=== PATIENT | male | born 1970 | race Caucasian/White ===

== ENCOUNTER → 2017-02-17 | Outpatient (CLI) | payer BC ==
--- NOTE | 2017-02-17 14:12 | XR ---
EXAMINATION TYPE: XR knee complete LT DATE OF EXAM: 02/17/2017 2:03 PM COMPARISON: NONE HISTORY: Pain TECHNIQUE: Four views are submitted. FINDINGS: Mild joint space narrowing. No erosive changes. Osseous structures are intact. No acute fracture see n. IMPRESSION: 1. Mild arthropathy.
== END | disposition home or self-care (01) ==
LOC: RADXRMAIN 13:45
PROVIDERS: ATTEND Family Medicine
DX: M12.862 Other specific arthropathies, not elsewhere classified, left knee (principal)

== ENCOUNTER → 2017-03-21 | Outpatient (CLI) | payer BC ==
--- NOTE | 2017-03-21 20:05 | MR ---
EXAMINATION TYPE: MR knee LT wo con DATE OF EXAM: 03/21/2017 COMPARISON: NONE HISTORY: lt knee pain medially. no recent injury. hx played hockey for yrs/goal tender TECHNIQUE: Multiplanar, multisequence imaging of the left knee is performed without IV contrast. FINDINGS: MEDIAL MENISCUS: There is linear oblique signal within the posterior horn medial meniscus. No communi cation with an articular surface is evident. Findings can be compatible with a type I internal tear. Anterior horn medial meniscus is normal. LATERAL MENISCUS: Anterior and posterior horns are intact without tear. CRUCIATE LIGAMENTS: The anterior and posterior cruciate ligaments are intact and unremarkable. COLLATERAL LIGAMENTS: The medial collateral ligament and lateral collateral ligament complex are inta ct and unremarkable. EXTENSOR MECHANISM: The patellar tendon appears intact. The distal quadriceps tendon and may have marie e increased signal adjacent to the anterior and posterior surfaces. Some mild tendinosis may be prese nt. EFFUSION: No significant suprapatellar joint effusion. POPLITEAL CYST: No popliteal/palumbo cyst. TRICOMPARTMENT SPACES: No loss of joint space is evident. CARTILAGE: Articular cartilage appears intact. BONE MARROW SIGNAL: No focal abnormal marrow signal is appreciated. OTHER: No additional significant abnormality is appreciated. IMPRESSION: 1. Oblique signal within the posterior horn medial meniscus without communication with an articular s urface compatible with a type I internal derangement. 2. Suggestion of some mild tendinosis of the distal quadriceps tendon
== END | disposition home or self-care (01) ==
LOC: RADMRIMAIN 18:38
PROVIDERS: ATTEND Orthopaedic Surgery
DX: M25.562 Pain in left knee (principal)

== ENCOUNTER → 2017-07-03 | Outpatient (CLI) | payer BC ==
--- NOTE | 2017-07-03 12:58 | MR ---
EXAMINATION TYPE: MR lumbar spine wo con DATE OF EXAM: 07/03/2017 COMPARISON: NONE HISTORY: Radiculopathy of lumbar region radiating to the left lower extremity with pain for 6 months TECHNIQUE: Multiplanar, multisequence images of the lumbar spine were acquired. L1-L2: There is a small broad-based disc bulge with left paracentral annular tear. No resultant neura l foraminal narrowing or significant spinal canal stenosis are seen. L2-L3: Broad-based disc bulge is seen as flattening of the posterior disc usual convexity and anterio r protrusion. Mild ligamentum flavum hypertrophy and facet arthropathy are also noted. Neural foramen and spinal canal remain patent. L3-L4: Broad-based disc bulge is seen as flattening of the posterior disc usual convexity and anterio r protrusion. Mild ligamentum flavum hypertrophy and facet arthropathy are also noted. Neural foramen and spinal canal remain patent. L4-L5: Broad-based disc bulge is seen as flattening of the posterior disc usual convexity and anterio r protrusion. Mild ligamentum flavum hypertrophy and facet arthropathy are also noted. Neural foramen and spinal canal remain patent L5-S1: Left paracentral small disc herniation with associated annular tear is seen abutting the formi ng S1 nerve root. Small nerve sheath cysts are seen bilaterally. Spinal canal and neural foramen colt in patent. Lumbar segments are intact. No paraspinal masses are identified. Conus medullaris has a normal appe arance terminating at L1-L2. IMPRESSION: 1. Small left paracentral disc herniation abutting the left S1 nerve root. Spinal canal and neural fo ramina remain patent. 2. Mild multilevel degenerative disc disease without resultant spinal canal stenosis.
== END | disposition home or self-care (01) ==
LOC: RADMRIMAIN 11:19
PROVIDERS: ATTEND Psychiatry & Neurology Neurology
DX: M51.17 Intervertebral disc disorders with radiculopathy, lumbosacral region (principal)
CPT/HCPCS: 72148

== ENCOUNTER → 2017-08-07 | Outpatient (CLI) | payer BC ==
--- NOTE | 2017-08-07 11:52 | XR ---
EXAMINATION TYPE: XR knee complete RT DATE OF EXAM: 08/07/2017 COMPARISON: NONE HISTORY: Pain TECHNIQUE: Four views are submitted. FINDINGS: Mild hypertrophic changes and joint space narrowing. No erosive changes. Osseous structures are inta ct. No acute fracture seen. IMPRESSION: 1. No acute fracture or dislocation.
== END ==
LOC: RADXRMAIN 10:33
PROVIDERS: ATTEND Family Medicine
DX: M25.561 Pain in right knee (principal)

== ENCOUNTER → 2017-09-12 | Outpatient (CLI) | payer BC ==
--- NOTE | 2017-09-12 19:07 | PN ---
PROGRESS NOTE A 46-year-old male patient coming in for a followup regarding obstructive sleep apnea. The patient was insistent on upgrading his CPAP machine. I checked his older unit, which is a [employer]ics REMstar pro unit, and this is set at a pressure of 11 cm of water. To my surprise, the patient was not using the CPAP machine at all and there has been no CPAP use for the past 30 days. The patient admitted not using the CPAP machine. As such, I would not justify upgrading the patient's CPAP machine as long as he has not been using his treatment for a while. He has a Quattro full face mask, which is clean and he had appropriate tubing and supplies. It is not clear to me why the patient has not been using the CPAP machine. He cannot come up with a clear explanation; however, he seems to be committed and he wants to go back on using the machine, knowing that he has moderate to severe disease with an AHI of 21. The CPAP pressure is still at 11 cm of water. BP is 124/84, pulse 72, respirations 16, temperature 98.2, saturation 96% on room air. Weight is 192. GENERAL APPEARANCE: Calm, comfortable. Head is atraumatic, normocephalic. NECK: Supple. There is no JVD. There is no goiter or neck mass. LUNGS: Clear to auscultation. HEART: Sounds regular rhythm. Normal S1, S2. No S3, S4. No murmurs. ABDOMEN: Soft, nontender. No organomegaly. EXTREMITIES: No edema. No cyanosis or clubbing. NEUROLOGIC: Alert and oriented x3. There are no focal neurological deficits. PSYCHIATRIC: Negative for anxiety or depression. SKIN: Negative for wounds or ulceration. IMPRESSION: 1. Symptomatic obstructive sleep apnea with an apnea-hypopnea index of 21, suboptimal continuous positive airway pressure use, suboptimal compliance. 2. Acid reflux. 3. Degenerative arthritis. PLAN: 1. The patient will not qualify to have his CPAP machine upgraded. 2. Encouraged to going back to his original CPAP machine use at the same setting. 3. Will continue to follow. He will see him back in a year's time in followup. MMODL / IJN: [id number] /
== END | disposition home or self-care (01) ==
LOC: SLEEP 14:00
PROVIDERS: ATTEND Internal Medicine Critical Care Medicine
DX: G47.33 Obstructive sleep apnea (adult) (pediatric) (principal); K21.9 Gastro-esophageal reflux disease without esophagitis; M19.90 Unspecified osteoarthritis, unspecified site

== ENCOUNTER 2018-06-20 11:04 | Emergency (ER) | payer BC ==
[2018-06-20 11:11] VITALS: BP 137/93; PULSE 67; RESP 18; TEMP 98.2
--- NOTE | 2018-06-20 12:11 | ED ---
Upper Extremity HPI - General Chief Complaint: Extremity Injury, Upper Stated Complaint: Arm Pain, finger numbness Time Seen by Provider: 06/20/18 11:58 Source: patient Mode of arrival: ambulatory Limitations: no limitations - History of Present Illness Initial Comments: This a 47-year-old male past history of hypertension and hyperlipidemia who presents today for chief complaint of left axillary pain. Patient states that about 2-3 days ago he began noticing a deep pain in his left axillary region he said it felt like a muscle ache. He denies any trauma or falls. Patient describes the pain as a deep pain, that was sharp and shooting at time. Pt denies a pattern and states that it started while sitting down one morning. Pt denies that is brought on by ambulation. Pt stated that as the days progressed since onset the pain would radiate down his left arm and he noticed tingling in his first 3 digits. Pt denies any neck pain or injury to the neck. In addition patient denies any numbness, tingling, loss sensation, muscle weakness, coolness , or pallor of extremity, rashes, lesions, or masses. Patient denies any chest pain, SOB, dyspnea upon exertion, back pain, diaphoresis. Pt denies taking medication for the pain. Pt denies cardiac history and denies history of cardiac issues in family prior to age of 52. Remainder of ROS negative. - Related Data Allergies Allergy/AdvReac Type Severity Reaction Status Date / Time No Known Allergies Allergy Verified 06/20/18 11:11 Review of Systems ROS Statement: Those systems with pertinent positive or pertinent negative responses have been documented in the HPI. ROS Other: All systems not noted in ROS Statement are negative. Constitutional: Denies: fever, chills Eyes: Denies: vision change ENT: Denies: ear pain, throat pain Respiratory: Denies: cough, dyspnea, wheezes, hemoptysis, stridor Cardiovascular: Denies: chest pain, palpitations, orthopnea, edema, syncope Endocrine: Denies: fatigue Gastrointestinal: Denies: abdominal pain, nausea, vomiting, diarrhea, constipation Genitourinary: Denies: urgency, dysuria, frequency, hematuria Musculoskeletal: Reports: as per HPI, myalgia. Denies: back pain, joint swelling, arthralgia Skin: Denies: rash, lesions Neurological: Denies: headache, weakness Past Medical History Past Medical History: Hypertension History of Any Multi-Drug Resistant Organisms: None Reported Additional Past Surgical History / Comment(s): vasectomy Past Psychological History: No Psychological Hx Reported Smoking Status: Current every day smoker Past Alcohol Use History: Occasional Past Drug Use History: Marijuana General Exam - General Exam Comments Initial Comments: General: The patient is awake and alert, in no distress, and does not appear acutely ill. Eye: Pupils are equal, round and reactive to light, extra-ocular movements are intact. No nystagmus. There is normal conjunctiva bilaterally. No signs of icterus. Ears, nose, mouth and throat: There are moist mucous membranes and no oral lesions. Cardiovascular: There is a regular rate and rhythm. No murmur, rub or gallop is appreciated. Respiratory: Lungs are clear to auscultation, respirations are non-labored, breath sounds are equal. No wheezes, stridor, rales, or rhonchi. Musculoskeletal: Upon inspection no erythema, rashes, masses, cysts/lesions, no obvious deformities or defects. Full ROM at the shoulder b/l with extension, flexion, rotation, internal and external rotation, pt admits to increased pain down arm with these movements. there is tenderness to palpation to the mid axillary region. UE strength 5/5 equally b/l, no signs of musclar weakness. Sensation intact of the UE equally b/l including the digits of the left hand. Radial pulses equal bilaterally 2+. Capillary refill <2 seconds. No midline or paravertebral tenderness to palpation of the cervical spine, pt is able to range at the c spine with flexion, extension, rotation and lateral flexion without pain or difficulty. +2 DTR of the UE equally b/l. Pt able to make the ok , fingers crossed, thumbs up and stop signs with the hands b/l. Median, ulnar and radial n intact. Neurological: A&O x 3. CN II-XII intact, There are no obvious motor or sensory deficits. Coordination appears grossly intact. Speech is normal. Skin: Skin is warm and dry and no rashes or lesions are noted. Psychiatric: Cooperative, appropriate mood & affect, normal judgment. Limitations: no limitations Course Vital Signs 06/20/18 11:09 Temperature 98.2 F Pulse Rate 67 Respiratory 18 Rate Blood Pressure 137/93 O2 Sat by Pulse 99 Oximetry Medical Decision Making - Medical Decision Making Given pt history of no trauma and the description of pain sounds neuropathic in nature. 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 EKG obtained due to left arm being the affected side, but pt shows no signs of ACS, VS stable pt appear well. EKG WNL. Case discussed with Dr. Mclaughlin who agreed with impressiona and plan. At this time we feel there may be an impingement syndrome causing neuropathic pain. Pt agrees with impression and plan. Pt was given orthopedic f/ u in 1-2 days for further evaluation and treatment. Pt was instructed to use over the counter NSAIDs for pain mgmt as needed and to rest shoulder. Pt d/c in stable condition. - EKG Data -: EKG Interpreted by Me EKG shows normal: sinus rhythm Rate: bradycardia EKG Comments: Ventricular rate 51 beats minute, DE interval 166, QRS duration 94 ms QTC 383 ms , no ST elevations or depressions, no T-wave inversions. Normal EKG with sinus fabiana. Disposition Clinical Impression: Radicular pain in left arm Disposition: HOME SELF-CARE Condition: Good Instructions: Arm Pain (ED) Additional Instructions: Please use medication as discussed. Please follow-up with orthopedic surgery in the next 1-2 days. Please return to emergency room if the symptoms increase or worsen or for any other concerns, as discussed. Is patient prescribed a controlled substance at d/c from ED?: No Referrals: Christina Walker MD [Primary Care Provider] - 1-2 days Chance Soares MD [STAFF PHYSICIAN] - 1-2 days Time of Disposition: 12:13
== END 2018-06-20 12:52 | disposition home or self-care (01) ==
LOC: EC 11:04
DX: M79.602 Pain in left arm (principal); R00.1 Bradycardia, unspecified; R20.2 Paresthesia of skin; F17.200 Nicotine dependence, unspecified, uncomplicated
CPT/HCPCS: 93005; 99283

== ENCOUNTER 2019-12-21 07:42 | Emergency (ER) | payer BC ==
--- NOTE | 2019-12-21 08:32 | ED ---
ENT HPI - General Source: patient Mode of arrival: ambulatory Limitations: no limitations <Acacia Mayorga - Last Filed: 12/21/19 10:34> <Sidra Cohen - Last Filed: 12/22/19 23:45> - General Chief complaint: ENT Stated complaint: ENT Time Seen by Provider: 12/21/19 07:50 - History of Present Illness Initial comments: 49yo male presenting today for cc of painful right anteior lymph nodes and cough x 2-3 days. Patient states the past 2-3 days he has had painful right side of his anterior neck he states he feels like his glands are swollen. He states that this has happened when he was ill in the past but has not for been this painful. Patient denies any headache or neck stiffness. Patient denies any sore throat difficulty swallowing breathing or swelling of the neck. Patient denies any fevers currently or night sweats. Patient admit to dry cough and states two weeks ago he believes he had influenza, had fevers at that time. Patient has not other complaints at this time. He appears well, tolerating oral secretion in no distress on arrival. Afebrile. (Acacia Mayorga) - Related Data Allergies Allergy/AdvReac Type Severity Reaction Status Date / Time varenicline [From Chantix] Allergy Unknown Verified 12/21/19 07:48 Review of Systems ROS Other: All systems not noted in ROS Statement are negative. <Acacia Mayorga - Last Filed: 12/21/19 10:34> ROS Other: All systems not noted in ROS Statement are negative. <Sidra Cohen - Last Filed: 12/22/19 23:45> ROS Statement: Those systems with pertinent positive or pertinent negative responses have been documented in the HPI. Past Medical History Past Medical History: Hyperlipidemia, Hypertension History of Any Multi-Drug Resistant Organisms: None Reported Additional Past Surgical History / Comment(s): vasectomy Past Psychological History: No Psychological Hx Reported Smoking Status: Current every day smoker Past Alcohol Use History: Occasional Past Drug Use History: Marijuana <Acacia Mayorga - Last Filed: 12/21/19 10:34> General Exam Limitations: no limitations <Acacia Mayorga - Last Filed: 12/21/19 10:34> - General Exam Comments Initial Comments: General: The patient is awake and alert, in no distress Eye: +3 mm pupils are equal, round and reactive to light, extra-ocular movements are intact. No nystagmus. There is normal conjunctiva bilaterally. No signs of icterus. No photophobia Ears, nose, mouth and throat: There are moist mucous membranes and no oral lesions. Oropharynx was erythematous there is no tonsillar enlargement exudates or lesions. Uvula midline. Tympanic membranes are not erythematous or is no effusions bulging or retraction. No tenderness to palpation of the mastoid. Rhinorrhea, clear and bilateral nares. No tripoding, no drooling. Neck: The neck is supple, there is right anterior tenderness to palpation and mild anterior lymphadenopathy. No JVD. No nuchal rigidity Cardiovascular: There is a regular rate and rhythm. No murmur, rub or gallop is appreciated. Respiratory: Lungs are clear to auscultation, respirations are non-labored, breath sounds are equal. No wheezes, stridor, rales, or rhonchi. No retractions or abdominal breathing. Gastrointestinal: Soft, non-distended, non-tender abdomen without masses or organomegaly noted. There is no rebound or guarding present. Bowel sounds are unremarkable. Musculoskeletal: Normal ROM, no tenderness. Strength 5/5. Sensation intact. Radial pulses equal bilaterally 2+. Neurological: A&O x 3. CN II-XII intact grossly, There are no obvious motor or sensory deficits. Coordination appears grossly intact. Speech appears normal, no muffling. Skin: Skin is warm and dry and no rashes or lesions are noted. No extremity edema Psychiatric: Cooperative (Acacia Mayorga) Course Vital Signs 12/21/19 12/21/19 07:45 09:05 Temperature 98.1 F 97.6 F Pulse Rate 79 60 Respiratory 16 18 Rate Blood Pressure 145/90 118/89 O2 Sat by Pulse 98 96 Oximetry Medical Decision Making - Lab Data Result diagrams: 12/21/19 08:15 <Acacia Mayorga - Last Filed: 12/21/19 10:34> - Lab Data Result diagrams: 12/21/19 08:15 <Sidra Cohen - Last Filed: 12/22/19 23:45> - Medical Decision Making 49-year-old male presented for tender right anterior lymphadenopathy. Patient recent URI. Patient has slight cough that is persistent. Chest x-ray clear infiltrates lungs clear. Patient appears well and nontoxic. Patient does have some mild erythema of the oropharynx. Uvula midline. Patient has no signs of tripoding or drooling no signs of compressive symptoms or hot potato voice. Patient has palpable enlarged right anterior lymphadenopathy. Patient has no systemic leukocytosis, heterophile negative strep pharyngitis rapid testing negative at this time I feel the lymphadenopathy physical reactive from a URI however this is early disease course isn't only been ongoing for 2-3 days and would need follow-up with primary care provider for further evaluation and diagnosis. Otherwise at this time do not feel that patient has airway compromise and is stable for discharge with primary care follow-up. Return parameters were discussed at length I did discuss the case by attending provider and patient was discharged appearing well (Acacia Mayorga) I was available for consultation in the emergency department. The history and physical exam were done by the midlevel provider. I was consulted for this patients care. I reviewed the case with the midlevel provider and based on their presentation of the patient, I agree with the assessment, medical decision making and plan of care as documented. Chart was dictated using [employer] dictation software. Attempts were made to correct any dictation errors however some typographical errors may persist. (Sidra Cohen) - Lab Data Lab Results 12/21/19 12/21/19 12/21/19 Range/Units 08:15 08:15 08:15 WBC 7.7 (3.8-10.6) k/uL RBC 4.80 (4.30-5.90) m/uL Hgb 15.4 (13.0-17.5) gm/dL Hct 44.5 (39.0-53.0) % MCV 92.8 (80.0-100.0) fL MCH 32.1 (25.0-35.0) pg MCHC 34.6 (31.0-37.0) g/dL RDW 12.6 (11.5-15.5) % Plt Count 297 (150-450) k/uL Neutrophils % 58 % Lymphocytes % 28 % Monocytes % 8 % Eosinophils % 4 % Basophils % 1 % Neutrophils # 4.5 (1.3-7.7) k/uL Lymphocytes # 2.1 (1.0-4.8) k/uL Monocytes # 0.6 (0-1.0) k/uL Eosinophils # 0.3 (0-0.7) k/uL Basophils # 0.0 (0-0.2) k/uL Heterophile Antibody Negative (Negative) Influenza Type A RNA Not Detected (Not Detectd) Influenza Type B (PCR) Not Detected (Not Detectd) Group A Strep Rapid (Negative) 12/21/19 Range/Units 08:15 WBC (3.8-10.6) k/uL RBC (4.30-5.90) m/uL Hgb (13.0-17.5) gm/dL Hct (39.0-53.0) % MCV (80.0-100.0) fL MCH (25.0-35.0) pg MCHC (31.0-37.0) g/dL RDW (11.5-15.5) % Plt Count (150-450) k/uL Neutrophils % % Lymphocytes % % Monocytes % % Eosinophils % % Basophils % % Neutrophils # (1.3-7.7) k/uL Lymphocytes # (1.0-4.8) k/uL Monocytes # (0-1.0) k/uL Eosinophils # (0-0.7) k/uL Basophils # (0-0.2) k/uL Heterophile Antibody (Negative) Influenza Type A RNA (Not Detectd) Influenza Type B (PCR) (Not Detectd) Group A Strep Rapid Negative (Negative) Disposition Is patient prescribed a controlled substance at d/c from ED?: No Time of Disposition: 09:18 <Acacia Mayorga - Last Filed: 12/21/19 10:34> <Sidra Cohen - Last Filed: 12/22/19 23:45> Clinical Impression: Lymphadenopathy Disposition: HOME SELF-CARE Condition: Good Instructions (If sedation given, give patient instructions): Lymphadenopathy (ED) Additional Instructions: Please use medication as discussed. Please follow-up with family doctor in the next 2 days. Please return to emergency room if the symptoms increase or worsen or for any other concerns. Referrals: Rogelio Pinto [Primary Care Provider] - 1-2 days
[2019-12-21 08:37] LABS: Basophils % (A) 1 %; Eosinophils # (A) 0.3 k/uL (0-0.7); Eosinophils % (A) 4 %; HCT 44.5 % (39.0-53.0); HGB 15.4 gm/dL (13.0-17.5); Lymphocytes # (A) 2.1 k/uL (1.0-4.8); Lymphocytes % (A) 28 %; MCH 32.1 pg (25.0-35.0); MCHC 34.6 g/dL (31.0-37.0); MCV 92.8 fL (80.0-100.0); Mean Platelet Volume 8.6; Monocytes # (A) 0.6 k/uL (0-1.0); Monocytes % (A) 8 %; Neutrophils # (A) 4.5 k/uL (1.3-7.7); Neutrophils % (A) 58 %; Platelet Count 297 k/uL (150-450); RDW 12.6 % (11.5-15.5); WBC 7.7 k/uL (3.8-10.6)
--- NOTE | 2019-12-21 08:57 | XR ---
EXAMINATION TYPE: XR chest 2V DATE OF EXAM: 12/21/2019 HISTORY: cough. REFERENCE: Previous study dated 11/23/2013. FINDINGS: The lungs remain clear. Pleural spaces are clear. Heart size is normal. IMPRESSION: NO ACUTE INTRATHORACIC ABNORMALITY.
[2019-12-21 09:06] VITALS: BP 118/89; PULSE 60; RESP 18; TEMP 97.6
[2019-12-21] MEDS ORDERED: KETOROLAC 30 MG/ML 1 ML VIAL IVP STA (09:14)
== END 2019-12-21 09:22 | disposition home or self-care (01) ==
LOC: EC 07:42
DX: R59.0 Localized enlarged lymph nodes (principal); J39.2 Other diseases of pharynx; R05 Cough; M54.2 Cervicalgia; F17.200 Nicotine dependence, unspecified, uncomplicated; Z88.8 Allergy status to other drugs, medicaments and biological substances; Z86.19 Personal history of other infectious and parasitic diseases
CPT/HCPCS: 36415; 85025; 86308; 87081; 87430; 87502; 71046; 99283; 96374; J1885

== ENCOUNTER → 2020-06-30 | Outpatient (CLI) | payer BC ==
--- NOTE | 2020-06-30 09:59 | CT ---
EXAMINATION TYPE: CT brain w con DATE OF EXAM: 06/30/2020 COMPARISON: None INDICATION: Visual changes DLP: 1036.0 mGycm, Automated exposure control for dose reduction was used. CONTRAST: 100 mL Isovue-300 CT of the brain is performed utilizing 3 mm thick sections through the posterior fossa and 3 mm thick sections through the remaining calvarium. Study is performed within 24 hours of arrival to the hosp [facility]. No abnormal hyperdensity is present to suggest an acute intracranial hemorrhage. No mass lesion is evident. No acute infarcts are evident. Ventricles and sulci are appropriate for the patient age. Paranasal sinuses and mastoid air cells within the [id number] are clear. No abnormal enhancement is evident. IMPRESSIONS: 1. Normal postcontrast CT brain
== END | disposition home or self-care (01) ==
LOC: RADCTMAIN 08:27
PROVIDERS: ATTEND Family Medicine
DX: H05.20 Unspecified exophthalmos (principal); R47.01 Aphasia; R20.0 Anesthesia of skin; R20.2 Paresthesia of skin
CPT/HCPCS: 70460; Q9967

== ENCOUNTER → 2021-11-12 | Outpatient (CLI) | payer BC ==
--- NOTE | 2021-11-12 14:29 | XR ---
Left hip HISTORY: Pain for 1 month, tendinitis, M 76.574 2 views of the left hip There is marginal spurring, concentric joint space loss in the left hip. Bone mineralization and alig nment are maintained. There is no fracture or dislocation. Surgical clips present at the level of the scrotum. IMPRESSION: Osteoarthritis, correlate for femoral acetabular impingement. Hip MRI may be of benefit a s indicated.
== END | disposition home or self-care (01) ==
LOC: RADXRMAIN 14:12
PROVIDERS: ATTEND Family Medicine
DX: M16.12 Unilateral primary osteoarthritis, left hip (principal)
CPT/HCPCS: 73502

== ENCOUNTER → 2021-12-16 | Outpatient (CLI) | payer BC ==
[2021-12-16 13:15] LABS: Partial Thromboplastin Time 24.7 sec (22.0-30.0); Prothrombin Time 10.9 sec (9.0-12.0)
[2021-12-16 18:05] LABS: HCT 52.2 % (39.6-50.0); HGB 17.9 g/dL (13.0-17.0); MCH 32.9 pg (27.0-32.0); MCHC 34.3 g/dL (32.0-37.0); Mean Platelet Volume 11.2 fL (9.5-12.2); NRBC Per 100 WBC 0 /100 WBCS (0.0-0.0); Platelet Count 210 X 10*3/uL (140-440); RBC 5.44 X 10*6/uL (4.40-5.60); RDW 13.2 % (11.5-14.5); WBC 6.56 X 10*3/uL (4.50-10.00)
[2021-12-16 18:16] LABS: Albumin 4.5 g/dL (3.8-4.9); Albumin/Globulin Ratio 1.54 (1.60-3.17); Anion Gap 11.7 mmol/L (10.00-18.00); BUN/Creat Ratio 7.73 Ratio (12.00-20.00); Blood Urea Nitrogen 8.2 mg/dL (9.0-27.0); Calcium 9.2 mg/dL (8.7-10.3); Carbon Dioxide 23.1 mmol/L (20.0-27.5); Globulin 2.9 g/dL (1.6-3.3); Potassium 4.4 mmol/L (3.5-5.5); Total Bilirubin 0.5 mg/dL (0.30-1.20); Total Protein 7.4 g/dL (6.2-8.2)
[2021-12-16 21:11] LABS: Appearance,Urine Clear (Clear); Bilirubin,Urine Negative (Negative); Blood,Urine Negative (Negative); Color,Urine Yellow (Yellow); Ketones,Urine Negative (Negative); Leukocyte Esterase,Urine Negative (Negative); Nitrite,Urine Negative (Negative); Protein,Urine Negative (Negative); Specific Gravity,Urine 1.017 (1.001-1.030); Urobilinogen,Urine 0.2 (0.2,1.0)
== END | disposition home or self-care (01) ==
LOC: LABPAT 12:22
PROVIDERS: ATTEND Orthopaedic Surgery
DX: Z01.818 Encounter for other preprocedural examination (principal); M16.12 Unilateral primary osteoarthritis, left hip
CPT/HCPCS: 36415; 80053; 81003; 85027; 85610; 85730; 87070; 93005

== ENCOUNTER 2021-12-24 07:30 | Day surgery (SDC) | payer BC ==
[2021-12-22 12:43] VITALS: BMI 27.5
[~2021-12-24 07:30] MED LIST: ACETAMINOPHEN TAB 500 MG TAB PO PRN; DEXAMETHASONE SOD PHOSPHATE 10 MG/ML 1 ML VIAL IV PRN; DOCUSATE 100 MG CAP PO PRN; FAMOTIDINE 20 MG/2 ML VIAL IVP PRN; KETOROLAC 15 MG/ML 1 ML VIAL IVP PRN; MIDAZOLAM 2 MG/2 ML VIAL IV PRN; ONDANSETRON 4 MG/2 ML VIAL IVP PRN; ROPIVACAINE/EPI/CLONIDINE/KET 50 ML SYRINGE MISCELLANE PRN; TRANEXAMIC ACID 1,000 MG in SODIUM CHLORIDE 0.9% 100 ML IVPB ONE; TRANEXAMIC ACID 1,000 MG in SODIUM CHLORIDE 0.9% 100 ML IVPB PRN; VANCOMYCIN 1,000 MG in SODIUM CHLORIDE 0.9% 250 ML IVPB PRN; oxyCODONE ER 10 MG TAB.ER.12H PO PRN
[2021-12-24] MEDS: LACTATED RINGERS 1,000 ML IV SCH (08:20)
[2021-12-24] MEDS ORDERED: MIDAZOLAM 2 MG/2 ML VIAL IV ONE (08:35)
[2021-12-24] MEDS ORDERED: hydrALAZINE HCL 20 MG/ML 1 ML VIAL IV ONE (08:55)
[2021-12-24] MEDS ORDERED: LIDOCAINE 1% INJ 10MG/ML (20 ML MDV) ONE ×2 (08:57→09:45)
[2021-12-24] MEDS ORDERED: PROPOFOL 10 MG/ML 20 ML VIAL IV ONE ×2 (08:57→09:45)
[2021-12-24] MEDS ORDERED: SUCCINYLCHOLINE CHLORIDE 100 MG/5 ML SYR IV ONE ×2 (08:57→09:45)
[2021-12-24] MEDS ORDERED: TRANEXAMIC ACID 1,000 MG/10 ML VIAL ONE (08:57)
[2021-12-24] MEDS ORDERED: SODIUM CHLORIDE 0.9% 100 ML BAG ONE (08:57)
[2021-12-24] MEDS ORDERED: NEOSTIGMINE 1 MG/ML 10 ML VIAL ONE ×2 (08:57→09:45)
[2021-12-24] MEDS ORDERED: GLYCOPYRROLATE 0.2 MG/ML 2 ML VIAL ONE ×2 (08:57→09:45)
[2021-12-24] MEDS ORDERED: HYDROmorphone (PF) 1 MG/ML ONE ×2 (08:57→09:45)
[2021-12-24] MEDS ORDERED: fentaNYL (PF) 50 MCG/ML 2 ML AMP ONE ×2 (08:57→09:45)
[2021-12-24] MEDS ORDERED: ROCURONIUM 10 MG/ML (5 ML VIAL) IV ONE ×2 (08:57→09:45)
[2021-12-24] MEDS ORDERED: MIDAZOLAM 2 MG/2 ML VIAL ONE (09:45)
[2021-12-24] MEDS ORDERED: ceFAZolin 3,000 MG in SODIUM CHLORIDE 0.9% IRRIGATIO 3,000 ML IRRIGATION ONE (09:47)
[2021-12-24] MEDS ORDERED: LACTATED RINGERS 1,000 ML IV ONE (09:50)
--- NOTE | 2021-12-24 11:13 | P.OP ---
Date of Procedure: 12/24/21 Preoperative Diagnosis: Left hip osteoarthritis Postoperative Diagnosis: Severe left hip osteoarthritis Procedure(s) Performed: Left direct anterior total hip arthroplasty Implants: 1. Akanksha Trident II size 56 cup 2. [place] Accolade II size 4 high offset stem (127-deg) 3. Biolox delta ceramic head 36-mm, +0 Anesthesia: JUANA Surgeon: Juan Jose Colby Director Of Construction #1: Phyllis Rausch Estimated Blood Loss (ml): 200 IV fluids (ml): 1,400 Pathology: none sent Condition: stable Disposition: PACU Indications for Procedure: I had a long discussion with the patient in the office on the potential risks and complications of an elective total hip replacement through a direct anterior approach. The patient had moderate arthritis on his x-ray and an MRI confirmed moderate to severe arthritic changes in the hip. He had severe pain with passive range of motion of the hip. It failed over 6 months of nonsurgical treatment and was significantly affecting his quality of life, ambulation, and ability to work. Risks discussed include, but are certainly not limited to, risks from anesthesia, superficial infection requiring local wound care or antibiotics, deep roxanne-prosthetic joint infection and the treatment required to eradicate infection, intraoperative fracture, postoperative periprosthetic fracture, damage to local blood vessels or nerves particularly the lateral femoral cutaneous nerve, delayed wound healing requiring local wound care or possibly surgical debridement, hip dislocation, leg length discrepancy, soft tissue irritation around the total hip implant such as iliopsoas tendinitis or trochanteric bursitis, wear and osteolysis from the implants, squeaking or audible noises, groin pain, thigh pain, heterotopic ossification, stiffness, aseptic loosening of the implants, dissatisfaction with surgical outcome, need for revision surgery, DVT, PE, swelling of the operative extremity, acute coronary event, stroke, failure to thrive, and possibly loss of life or limb. The patient understands that while these are the most common complications after an elective hip replacement there are certainly other less common complications possible. They were given ample time to ask questions regarding the potential complications of a hip replacement. Following our discussion the patient provided their verbal and written consent to go forward with an elective total hip replacement. Operative Findings: There was a large effusion in the left hip and severe full-thickness cartilage loss diffusely throughout the femoral head and acetabulum. Description of Procedure: The patient was identified in the preoperative holding area and the correct hip was marked with my initials. I reviewed the procedure and consent with the patient. All of their questions were answered. The patient was then brought back into the operating room by anesthesia. While on the [facility] anesthesia was administered by the anesthesia team. Preoperative antibiotics and tranexamic acid were also given. After the patient was under anesthesia I examined their ankles to determine their preoperative leg length discrepancy. The skin over the anterior aspect of the hip was shaved to remove hair over the site of planned incision. Both feet and ankles were padded with webril and boots for the [place] were applied. The patient was then carefully transferred onto the [place] table. A perineal post was immediately placed. The arms were placed on arm holders and were well-padded. Both boots were secured to the spars on the [place] table. The patient was positioned so that the pelvis was centered over the post. Nonsterile drapes were applied. A timeout was performed identifying the correct patient, operative extremity, and procedure. At this point fluoroscopy was brought in to take preoperative images of the pelvis and operative hip. Using the standing AP pelvis from the office as a template, a comparable image was obtained with fluoroscopy. A metallic bar was used to create a bi-ischial line for use as a reference to leg length adjustments during the procedure. Global offset was also measured on both the operative and nonoperative leg. Fluoroscopy was then brought out and a pre-scrub using a chlorhexidine scrub brush was performed. The operative limb was then prepped and draped in the standard sterile fashion. An anterior longitudinal incision was made lateral and distal to the ASIS. The skin and subcutaneous tissues were incised sharply. The underlying tensor fascia was identified and incised in its midportion. The fascia was dissected free from the underlying muscle and the muscle belly was retracted. A blunt tipped cobra retractor was placed over the superior neck under the muscle fibers of the gluteus minimus. The deep enveloping fascia of the tensor was incised. The anterior leash of vessels were then identified and cauterized. The fascia between the rectus and the capsule was then incised and the pre-capsular fat was excised. A second Cobra was placed inferior to the neck. The interval between the rectus and iliocapsularis and the hip capsule was developed and a retractor was placed carefully over the anterior rim of the acetabulum. A T-shaped anterior capsulotomy was performed. The superior capsular leaflet was left in place in the inferior capsular flap was excised. The Cobra retractors were placed intracapsularly. We then made a femoral neck osteotomy according to preoperative and intraoperative templating and confirmed the level of the osteotomy using fluoroscopic imaging. The femoral head was removed, passed off to the back table, and sized. The superior capsular flap was excised. Retractors were placed circumferentially exposing the acetabulum. We then circumferentially debrided the acetabulum free of labrum and osteophytes. The pulvinar was removed to fully visualize the cotyloid fossa. We then sequentially reamed to achieve peripheral fit and excellent bleeding subchondral bone. The socket was thoroughly irrigated. The acetabular component was impacted into the appropriate position using fluoroscopy to guide version, inclination, and depth of insertion taking care to have a comparable image of the AP pelvis to the standing image taken in the office. An excellent press-fit was achieved and final position was confirmed using fluoroscopy. The press fit was augmented with bony cancellus dome screws. The liner was then impacted into the socket. Attention was then turned to the femur. The remnant dorsal lateral capsule was excised. The short external rotators were visible and protected. A bone hook was used to confirm appropriate translation of the trochanter away from the acetabulum. The leg was then extended and adducted and the bone hook was used to elevate the femur for broaching. A box osteotome and blunt tipped canal sound was then utilized to gain access to the femoral canal. We then sequentially broached the femur in appropriate anteversion until excellent torsional stability was achieved. The neck cut was brought flush to the trial broach with a calcar planar. A trial neck and head were then placed onto the broach and the hip was atraumatically reduced under direct visualization. External rotation to 90 was performed to assess stability. Fluoroscopy was brought in. An AP and lateral fluoroscopic image of the proximal femur was obtained to assess position and fill of the trial broach. An AP of the pelvis was then obtained and matched to the preoperative image taken. A bi-ischial bar was then placed and measurements were taken to assess changes in length and offset. The hip was then carefully dislocated, the proximal femur was exposed, and the trial implants were removed. The wound and proximal femur was thoro ughly irrigated using sterile saline and pulsatile lavage. The final femoral implant was dispensed and gently tapped into place generating an excellent press-fit. The trunnion was cleansed and the final head was tapped into place to engage the Adhikari taper. The acetabulum was irrigated and visualized to be free of debris. The hip was carefully reduced. Stability was checked clinically with external rotation to 90 and there was no evidence of instability. Final fluoroscopic images were taken. The wound was then thoroughly irrigated and soaked with a dilute Betadine rinse for 3 minutes. 3 L of sterile saline was irrigated through the wound using pulsatile lavage. Local anesthetic cocktail was injected into the soft tissues around the surgical field. A deep drain was placed. The wound was then closed in layers. A sterile dressing was placed over the surgical incision and drain site. The drapes were taken down and the patient was carefully transferred off of the [place] table. Following removal of the boots the leg lengths felt acceptable. The patient was then taken to recovery room having tolerated the procedure well. Phyllis Rausch PA-C was required as a skilled promotional advertising assistant for patient positioning, surgical exposure, retraction, placement of implants, and closure of the surgical wound. PLAN: The patient can weight-bear as tolerated on the operative extremity. 2 doses of postoperative antibiotics. DVT prophylaxis with aspirin 81 mg twice a day based on preoperative risk stratification. Physical therapy for gait training. Discontinue drain postoperative day #1 if output is less than 100 mL per shift.
[2021-12-24] MEDS ORDERED: hydrOXYzine pamoate 25 MG CAP PO PRN (11:27)
[2021-12-24] MEDS ORDERED: NALOXONE 0.4 MG/ML 1 ML VIAL IV PRN (11:27)
[2021-12-24] MEDS ORDERED: HYDROmorphone 1 MG/ML 1 ML SYRINGE IVP PRN ×2 (11:27)
[2021-12-24] MEDS ORDERED: HYDROcodone/APAP 5-325MG 1 EACH TAB PO PRN (11:27)
[2021-12-24] MEDS: HYDROmorphone 0.5 MG/0.5 ML SYRINGE IVP PRN ×2 (11:51→12:00)
--- NOTE | 2021-12-24 12:10 | FL ---
Fluoroscopy HISTORY: Anterior hip replacement 1.12 minutes fluoroscopy time supplied to the referring clinician. 9 intraoperative C-arm images doc ument the procedure. See dictated report from orthopedic surgery.
[2021-12-24] MEDS: HYDROcodone/APAP 5-325MG 1 EACH TAB PO PRN ×2 (13:11→20:26)
[2021-12-24] MEDS: HYDROmorphone 1 MG/ML 1 ML SYRINGE IVP PRN ×2 (14:45→18:12)
--- NOTE | 2021-12-24 15:56 | P.CONS ---
History of Present Illness - Reason for Consult Consult date: 12/24/21 - Chief Complaint Medical management - History of Present Illness 51-year-old man with medical history of hypertension, hyperlipidemia, GERD, osteoarthritis presented for elective left MANDI. Medicine consulted by orthopedic surgery service for medical management. Patient has no complaints at this time, has been up and ambulating with walker in the hallway. Pain is well- controlled. Vision for the denies fevers, chills, nausea, vomiting, chest pain, palpitations, cough, dyspnea, abdominal pain, constipation, diarrhea, numbness/weakness of extremities. On my evaluation, patient is afebrile, 127/80, heart rate 87, 94% on room air. No labs to review. Hip x-ray shows an anatomically aligned hip. All Systems reviewed and pertinent positives and negatives noted in HPI, all other symptoms are negative Gen: awake, alert HEENT: normocephalic, atraumatic, good hearing acuity, moist mucous membranes Resp: good air exchange, breathing comfortably with no accessory muscle use CVS: good distal perfusion x 4, GI: soft, NTTP, ND : no SPT, no CVAT, scott catheter not present MSK: no pitting edema, no clubbing Neuro: non-focal, moving all extremities Psych: cooperative, euthymic mood Labs and imaging as above Assessment/plan: Hypertension Hyperlipidemia GERD without esophagitis -Resume home medications -Amlodipine, atorvastatin, Wellbutrin, lisinopril, Prilosec Osteoarthritis Status post left MANDI -Pain control and DVT prophylaxis per primary team Thank you for this consult. Member of our team is available 15/05, should any i ssues arise, please reach out to her team via perfect serve. Past Medical History Past Medical History: GERD/Reflux, Hyperlipidemia, Hypertension, Osteoarthritis (OA), Sleep Apnea/CPAP/BIPAP Additional Past Medical History / Comment(s): migraines, occ. CPAP used, History of Any Multi-Drug Resistant Organisms: None Reported Additional Past Surgical History / Comment(s): vasectomy Past Anesthesia/Blood Transfusion Reactions: No Reported Reaction Past Psychological History: No Psychological Hx Reported Smoking Status: Former smoker Past Alcohol Use History: Daily Additional Past Alcohol Use History / Comment(s): quit smoking 10 days ago, smoked for 35 yrs, 1 PPD Past Drug Use History: Marijuana - Past Family History Father Family Medical History: Cancer Additional Family Medical History / Comment(s): skin cancer Medications and Allergies Home Medications Medication Instructions Recorded Confirmed Type Atorvastatin Calcium [Lipitor] 10 mg PO HS 12/22/21 12/24/21 History Omeprazole 40 mg PO DAILY 12/22/21 12/24/21 History amLODIPine [Norvasc] 10 mg PO HS 12/22/21 12/24/21 History buPROPion HCL [buPROPion HCL SR] 150 mg PO Q12HR 12/22/21 12/24/21 History lisinopriL [Zestril] 20 mg PO HS 12/22/21 12/24/21 History traMADol HCL [Ultram] 50 mg PO Q6HR PRN 12/22/21 12/24/21 History Aspirin 81 mg PO BID 30 Days #60 tab 12/24/21 Rx Diclofenac Sodium [Voltaren] 75 mg PO BID 30 Days #60 tab 12/24/21 Rx Docusate [Colace] 100 mg PO BID 30 Days #60 cap 12/24/21 Rx HYDROcodone/APAP 5-325MG [[place] 1 - 2 tab PO Q6HR PRN 7 Days #40 12/24/21 Rx 5-325] tab Omeprazole 40 mg PO DAILY 30 Days #30 cap 12/24/21 Rx Allergies Allergy/AdvReac Type Severity Reaction Status Date / Time varenicline [From Chantix] AdvReac upset Verified 12/24/21 07:54 stomach Physical Exam Osteopathic Statement: *. No significant issues noted on an osteopathic structural exam other than those noted in the History and Physical/Consult. Vitals: Vital Signs Temp Pulse Pulse Resp BP Pulse Ox 12/24/21 14:06 87 127/80 94 L 12/24/21 13:51 91 126/86 12/24/21 13:36 82 119/81 90 L 12/24/21 13:21 79 122/85 94 L 12/24/21 13:06 97 139/100 12/24/21 12:51 76 146/103 12/24/21 12:36 90 135/85 12/24/21 12:21 97.5 F L 86 124/83 96 12/24/21 12:01 87 16 133/87 94 L 12/24/21 11:46 90 16 134/86 97 12/24/21 11:31 96.9 F L 105 H 18 131/82 96 12/24/21 09:01 147/104 12/24/21 08:50 77 16 141/106 94 L 12/24/21 08:45 75 16 152/114 95 12/24/21 08:32 163/112 12/24/21 08:19 155/106 12/24/21 08:00 97.5 F L 73 16 184/115 95 Intake and Output 12/24/21 12/24/21 12/24/21 06:59 14:59 22:59 Intake Total 1651 Output Total 200 Balance 1451 Intake: IV 1651 Output: Estimated Blood Loss 200 Other: Weight 90.1 kg
[2021-12-24] MEDS: ASPIRIN 81 MG PO SCH (20:26)
[2021-12-24] MEDS: buPROPion SR 150 MG TABLET.ER PO SCH (20:48)
[2021-12-24] MEDS ORDERED: amLODIPine 10 MG TAB PO SCH (21:00)
[2021-12-24] MEDS ORDERED: SENNOSIDES-DOCUSATE SODIUM 1 EACH TAB PO SCH (21:00)
[2021-12-24] MEDS ORDERED: ATORVASTATIN 10 MG TAB PO SCH (21:00)
[2021-12-24] MEDS ORDERED: lisinopriL 20 MG TAB PO SCH (21:00)
[2021-12-25] MEDS: HYDROcodone/APAP 5-325MG 1 EACH TAB PO PRN ×2 (02:33→08:04)
[2021-12-25] MEDS: HYDROmorphone 1 MG/ML 1 ML SYRINGE IVP PRN (04:34)
--- NOTE | 2021-12-25 06:57 | P.PN ---
Subjective Progress Note Date: 12/25/21 Doing well, no complaints, Pain controlled. Objective - Vital Signs Vital signs: Vital Signs Temp 98.4 F 12/25/21 02:00 Pulse 82 12/25/21 02:00 Resp 16 12/25/21 02:00 BP 113/71 12/25/21 02:00 Pulse Ox 93 L 12/25/21 02:00 Intake & Output 12/24/21 12/24/21 12/25/21 06:59 18:59 06:59 Intake Total 1651 1000 Output Total 200 175 Balance 1451 825 Weight 90.1 kg Intake: IV 1651 Intake, IV Titration 100 Amount ceFAZolin 2 gm In Sodium 100 Chloride 0.9% 50 ml @ 100 mls/hr IVPB Q8H [facility] Rx#: [id number] Oral 900 Output: Drainage 175 Left Hip 175 Estimated Blood Loss 200 Other: # Voids 1 5 - Exam Resting comfortably. AAO3 Left LE: dressing clean, no saturation. Drain pulled. Thigh soft. Femoral nerve function intact. Moves foot/ankle up/down. SILT toes Assessment and Plan Assessment: POD#1 s/p L DA MANDI Plan: 1. WBAT Left LE, anterior hip precautions 2. 2 doses post op antibiotics 3. DVT prophy with ASA 81 mg bid 4. PT 5. Discharge home this morning, f/u in office in 2 weeks
[2021-12-25] MEDS: LACTATED RINGERS 1,000 ML IV SCH (07:59)
[2021-12-25] MEDS: ASPIRIN 81 MG PO SCH (08:02)
[2021-12-25] MEDS: buPROPion SR 150 MG TABLET.ER PO SCH (08:03)
[2021-12-25 08:40] LABS: HCT 44.1 % (39.6-50.0); HGB 15.2 g/dL (13.0-17.0); MCH 32.8 pg (27.0-32.0); MCHC 34.5 g/dL (32.0-37.0); Mean Platelet Volume 11.2 fL (9.5-12.2); NRBC Per 100 WBC 0 /100 WBCS (0.0-0.0); Platelet Count 255 X 10*3/uL (140-440); RBC 4.64 X 10*6/uL (4.40-5.60); RDW 12.6 % (11.5-14.5)
[2021-12-25] MEDS ORDERED: PANTOPRAZOLE 40 MG TABLET PO SCH (09:00)
[2021-12-25 09:20] LABS: Basophils # (A) 0.02 X 10*3/uL (0.00-0.10); Basophils % (A) 0.1 %; Eosinophils # (A) 0.01 X 10*3/uL (0.04-0.35); Eosinophils % (A) 0.1 %; Immature Grans, Automated 0.5 %; Lymphocytes # (A) 1.57 X 10*3/uL (0.90-5.00); Lymphocytes % (A) 8.2 %; Monocytes # (A) 1.77 X 10*3/uL (0.20-1.00); Monocytes % (A) 9.3 %; Neutrophils # (A) 15.64 X 10*3/uL (1.80-7.70); Neutrophils % (A) 81.8 %
[2021-12-25 09:30] VITALS: BP 124/83; PULSE 83; RESP 17; TEMP 97.7
--- NOTE | 2021-12-25 11:02 | P.DS ---
Providers Date of admission: 12/24/2021 Expected date of discharge: 12/25/21 Attending physician: Juan Jose Colby Consults: 12/24/21 11:30 Consult Physician Routine Consulting Provider: Guanako Chavez Consult Reason/Comments: medical management Do you want consulting provider notified?: Yes Primary care physician: Rogelio Pinto - Discharge Diagnosis(es) (1) Hypertension Current Visit: Yes Status: Acute (2) Hyperlipidemia Current Visit: Yes Status: Acute (3) Osteoarthritis of left hip Current Visit: Yes Status: Acute (4) S/P total left hip arthroplasty Current Visit: Yes Status: Acute Hospital Course: This is a pleasant 51-year-old male who presented with left hip osteoarthritis who failed outpatient conservative therapy. He was admitted for a left direct anterior total hip arthroplasty. The patient tolerated the procedure well and did well postoperatively. He has been able to work with physical therapy this morning without significant difficulty. He is utilizing a walker to aid in ambulation. A walker has been brought to the room for him for home use. He feels his pain is well-controlled. He was seen and examined by Dr. Colby at the bedside this morning. His drain has been discontinued. He is ready for discharge today. Condition on day of discharge stable. Patient will be discharged home. Patient was cleared preoperatively for surgery by Dr. Pinto. Patient currently denies any nausea, vomiting, fever, or chills. Patient is eating and voiding freely without difficulty. Patient may shower Optifoam dressing intact. Patient should keep dressing intact over the left hip until his follow-up appointment in the office. He may continue to weight-bear as tolerated on the left lower extremity with the use of a walker. MAPS as previously reviewed. An "Opiod Start Talking" Form has been signed and placed in the patient's chart. A prescription has been written for Point 5 mg/325 mg 1-2 tabs every 6 hours as needed for pain, dispense #40. Patient is also given a prescription for aspirin 81 mg 1 tab twice a day. He should take this prescription until completion. Patient is given a prescription for omeprazole 40 mg, Colace 100 mg, and Voltaren 75 mg. Patient should take all medications as prescribed. Patient's other medical diagnoses include hypertension and hyperlipidemia. Physical Exam on day of discharge: Status post surgical day number 1 Patient is examined lying in bed Patient is awake and alert, and oriented 3 Vital signs stable Good chest excursion with deep inspiration and expiration No signs or symptoms of DVT; no calf pain Stocking intact over the left lower extremity Dressing of the left hip is dry and intact with a small area of dried blood with the drain was removed; no erythema, purulence, or signs of infection Full range of motion of left ankle Dorsiflexion, plantarflexion, and extensor hallucis longus positive sustained bilaterally Neurovascularly intact bilateral lower extremities Procedures: Left direct anterior total hip arthroplasty Patient Condition at Discharge: Stable Plan - Discharge Summary Discharge Rx Participant: Yes New Discharge Prescriptions: New Aspirin 81 mg PO BID 30 Days #60 tab Omeprazole 40 mg PO DAILY 30 Days #30 cap Docusate [Colace] 100 mg PO BID 30 Days #60 cap HYDROcodone/APAP 5-325MG [[place] 5-325] 1 - 2 tab PO Q6HR PRN 7 Days #40 tab PRN Reason: Pain Diclofenac Sodium [Voltaren] 75 mg PO BID 30 Days #60 tab Continue Omeprazole 40 mg PO DAILY traMADol HCL [Ultram] 50 mg PO Q6HR PRN PRN Reason: Pain amLODIPine [Norvasc] 10 mg PO HS lisinopriL [Zestril] 20 mg PO HS buPROPion HCL [buPROPion HCL SR] 150 mg PO Q12HR Atorvastatin Calcium [Lipitor] 10 mg PO HS Discharge Medication List Atorvastatin Calcium [Lipitor] 10 mg PO HS 12/22/21 [History] Omeprazole 40 mg PO DAILY 12/22/21 [History] amLODIPine [Norvasc] 10 mg PO HS 12/22/21 [History] buPROPion HCL [buPROPion HCL SR] 150 mg PO Q12HR 12/22/21 [History] lisinopriL [Zestril] 20 mg PO HS 12/22/21 [History] traMADol HCL [Ultram] 50 mg PO Q6HR PRN 12/22/21 [History] Aspirin 81 mg PO BID 30 Days #60 tab 12/24/21 [Rx] Diclofenac Sodium [Voltaren] 75 mg PO BID 30 Days #60 tab 12/24/21 [Rx] Docusate [Colace] 100 mg PO BID 30 Days #60 cap 12/24/21 [Rx] HYDROcodone/APAP 5-325MG [[place] 5-325] 1 - 2 tab PO Q6HR PRN 7 Days #40 tab 12/24/21 [Rx] Omeprazole 40 mg PO DAILY 30 Days #30 cap 12/24/21 [Rx] Follow up Appointment(s)/Referral(s): [facility], [NON-STAFF] - ([facility] will call you to schedule your in home physical therapy visits. ) Juan Jose Colby MD [Medical Doctor] - 2 Weeks Patient Instructions/Handouts: Anterior Hip Replacement (DC) Activity/Diet/Wound Care/Special Instructions: Weight bear as tolerated on operative leg with a walker. Keep operative dressing intact until follow-up appointment in the office. Take pain medications as prescribed. Take aspirin 81mg BID x 4 weeks for blood clot prevention. Follow-up in the office in two weeks with Dr. Colby. Call the office with any questions or concerns, Discharge Disposition: HOME WITH HOME HEALTH SERVICES
--- NOTE | 2021-12-25 11:25 | P.PN ---
Subjective 51-year-old man with medical history of hypertension, hyperlipidemia, GERD, osteoarthritis presented for elective left MANDI. [facility]. Patient has no complaints at this time, has been up and ambulating with walker in the hallway. Pain is well- controlled. Vision for the denies fevers, chills, nausea, vomiting, chest pain, palpitations, cough, dyspnea, abdominal pain, constipation, diarrhea, numbness/weakness of extremities. 12/25: patient is doing well today with no complaints. Resting in bed comfortably, anxious to go home. Gen: awake, alert HEENT: normocephalic, atraumatic, good hearing acuity, moist mucous membranes Resp: good air exchange, breathing comfortably with no accessory muscle use CVS: good distal perfusion x 4, GI: soft, NTTP, ND : no SPT, no CVAT, scott catheter not present MSK: no pitting edema, no clubbing Neuro: non-focal, moving all extremities Psych: cooperative, euthymic mood Assessment/plan: Hypertension Hyperlipidemia GERD without esophagitis -Resume home medications -Amlodipine, atorvastatin, Wellbutrin, lisinopril, Prilosec Osteoarthritis Status post left MANDI -Pain control and DVT prophylaxis per primary team D/c med rec addressed. Pt stable for discharge from our standpoint. Thank you for this consult. Member of our team is available 15/05, should any issues arise, please reach out to her team via perfect serve. Objective - Vital Signs Vital signs: Vital Signs Temp 97.7 F 12/25/21 07:17 Pulse 83 12/25/21 07:17 Resp 17 12/25/21 07:17 BP 124/83 12/25/21 07:17 Pulse Ox 95 12/25/21 07:17 Intake & Output 12/24/21 12/25/21 12/25/21 18:59 06:59 18:59 Intake Total 1651 1000 Output Total 200 175 Balance 1451 825 Weight 90.1 kg Intake: IV 1651 Intake, IV Titration 100 Amount ceFAZolin 2 gm In Sodium 100 Chloride 0.9% 50 ml @ 100 mls/hr IVPB Q8H [facility] Rx#: [id number] Oral 900 Output: Drainage 175 Left Hip 175 Estimated Blood Loss 200 Other: # Voids 1 5 1 - Labs CBC & Chem 7: 12/25/21 04:43 Labs: Abnormal Lab Results - Last 24 Hours (Table) 12/25/21 Range/Units 04:43 WBC 19.10 H (4.50-10.00) X 10*3/uL MCH 32.8 H (27.0-32.0) pg Immature Gran # 0.09 H (0.00-0.04) X 10*3/uL Neutrophils # 15.64 H (1.80-7.70) X 10*3/uL Monocytes # 1.77 H (0.20-1.00) X 10*3/uL Eosinophils # 0.01 L (0.04-0.35) X 10*3/uL
== END 2021-12-25 13:04 | disposition home health service (06) ==
LOC: OR 07:30 → 4SSUR 11:20 → OR 12-25 13:04
PROVIDERS: ATTEND Orthopaedic Surgery
DX: M16.12 Unilateral primary osteoarthritis, left hip (principal); M25.752 Osteophyte, left hip; N50.819 Testicular pain, unspecified; I10 Essential (primary) hypertension; E78.5 Hyperlipidemia, unspecified; R26.81 Unsteadiness on feet; Z97.3 Presence of spectacles and contact lenses; K21.9 Gastro-esophageal reflux disease without esophagitis; M51.27 Other intervertebral disc displacement, lumbosacral region; R47.01 Aphasia; G47.33 Obstructive sleep apnea (adult) (pediatric); Z87.891 Personal history of nicotine dependence; Z98.52 Vasectomy status; Z82.49 Family history of ischemic heart disease and other diseases of the circulatory system; Z83.3 Family history of diabetes mellitus; Z83.438 Family history of other disorder of lipoprotein metabolism and other lipidemia; Z80.8 Family history of malignant neoplasm of other organs or systems; Z80.0 Family history of malignant neoplasm of digestive organs; Z80.42 Family history of malignant neoplasm of prostate; Z79.82 Long term (current) use of aspirin; Z79.899 Other long term (current) drug therapy; Z88.8 Allergy status to other drugs, medicaments and biological substances
CPT/HCPCS: 97116; 97161; 86900; 86901; 85025; 86850; 88300; 73501; 27130; C1776; J2250; J0360; J1100; J2710; S0106 ×2; J0690 ×3; J2405; J2001; J3010; J1170 ×3; J1885; J0330; J2704

== ENCOUNTER → 2022-09-06 | Outpatient (CLI) | payer BC ==
[2022-09-06 15:37] LABS: Partial Thromboplastin Time 24.9 sec (22.0-30.0); Prothrombin Time 10.7 sec (9.0-12.0)
[2022-09-06 18:57] LABS: HCT 52.2 % (39.6-50.0); HGB 18.3 g/dL (13.0-17.0); MCH 33.3 pg (27.0-32.0); MCHC 35.1 g/dL (32.0-37.0); MCV 95.1 fL (80.0-97.0); Mean Platelet Volume 10.9 fL (9.5-12.2); NRBC Per 100 WBC 0 /100 WBCS (0.0-0.0); Platelet Count 220 X 10*3/uL (140-440); RBC 5.49 X 10*6/uL (4.40-5.60); RDW 13.9 % (11.5-14.5); WBC 7.58 X 10*3/uL (4.50-10.00)
[2022-09-06 19:05] LABS: African American GFR (CKD) 90.9 (60.0-200.0); Albumin 4.6 g/dL (3.8-4.9); Albumin/Globulin Ratio 1.64 (1.60-3.17); Anion Gap 11.5 mmol/L (10.00-18.00); BUN/Creat Ratio 7.91 Ratio (12.00-20.00); Blood Urea Nitrogen 8.7 mg/dL (9.0-27.0); Calcium 9.5 mg/dL (8.7-10.3); Carbon Dioxide 27.5 mmol/L (20.0-27.5); Globulin 2.8 g/dL (1.6-3.3); Non-African American GFR(CKD) 78.4 (60.0-200.0); Potassium 3.7 mmol/L (3.5-5.5); Total Bilirubin 0.7 mg/dL (0.30-1.20); Total Protein 7.4 g/dL (6.2-8.2)
[2022-09-06 23:40] LABS: Appearance,Urine Clear (Clear); Bilirubin,Urine Negative (Negative); Blood,Urine Negative (Negative); Color,Urine Yellow (Yellow); Ketones,Urine Negative (Negative); Nitrite,Urine Negative (Negative); Specific Gravity,Urine 1.008 (1.001-1.030); Urobilinogen,Urine 0.2 (0.2,1.0)
== END | disposition home or self-care (01) ==
LOC: LABPAT 14:13
PROVIDERS: ATTEND Orthopaedic Surgery
DX: Z01.812 Encounter for preprocedural laboratory examination (principal); Z01.818 Encounter for other preprocedural examination
CPT/HCPCS: 36415; 80053; 81003; 85027; 85610; 85730; 87070

== ENCOUNTER 2022-09-16 05:46 | Observation (INO) | payer BC ==
[~2022-09-16 05:46] MED LIST changes: -ACETAMINOPHEN TAB 500 MG TAB PO PRN; -DEXAMETHASONE SOD PHOSPHATE 10 MG/ML 1 ML VIAL IV PRN; -DOCUSATE 100 MG CAP PO PRN; -FAMOTIDINE 20 MG/2 ML VIAL IVP PRN; -KETOROLAC 15 MG/ML 1 ML VIAL IVP PRN; -MIDAZOLAM 2 MG/2 ML VIAL IV PRN; -ONDANSETRON 4 MG/2 ML VIAL IVP PRN; -ROPIVACAINE/EPI/CLONIDINE/KET 50 ML SYRINGE MISCELLANE PRN; -TRANEXAMIC ACID 1,000 MG in SODIUM CHLORIDE 0.9% 100 ML IVPB ONE; -TRANEXAMIC ACID 1,000 MG in SODIUM CHLORIDE 0.9% 100 ML IVPB PRN; +TRANEXAMIC ACID IN NACL,ISO-OS 1,000 MG in SALINE 1 100ML.BAG IVPB PRN; -VANCOMYCIN 1,000 MG in SODIUM CHLORIDE 0.9% 250 ML IVPB PRN; -oxyCODONE ER 10 MG TAB.ER.12H PO PRN
[2022-09-16] MEDS ORDERED: ONDANSETRON 4 MG/2 ML VIAL IVP PRN ×2 (06:00→09:39)
[2022-09-16] MEDS ORDERED: KETOROLAC 15 MG/ML 1 ML VIAL IVP PRN (06:00)
[2022-09-16] MEDS ORDERED: DOCUSATE 100 MG CAP PO PRN (06:00)
[2022-09-16] MEDS ORDERED: FAMOTIDINE 20 MG/2 ML VIAL IVP PRN (06:00)
[2022-09-16] MEDS ORDERED: oxyCODONE ER 10 MG TAB.ER.12H PO PRN (06:00)
[2022-09-16] MEDS ORDERED: ACETAMINOPHEN TAB 500 MG TAB PO PRN (06:00)
[2022-09-16] MEDS ORDERED: DEXAMETHASONE SOD PHOSPHATE 10 MG/ML 1 ML VIAL IV PRN (06:00)
[2022-09-16] MEDS ORDERED: DEXAMETHASONE SOD PHOSPHATE 4 MG/ML 1 ML VIAL IV ONE (06:02)
[2022-09-16] MEDS ORDERED: HYDROmorphone 0.5 MG/0.5 ML SYRINGE IVP PRN ×3 (06:02→09:39)
[2022-09-16] MEDS ORDERED: ONDANSETRON 4 MG/2 ML VIAL IVP ONE (06:02)
[2022-09-16] MEDS ORDERED: LACTATED RINGERS 1,000 ML IV SCH (06:02)
[2022-09-16] MEDS ORDERED: ACETAMINOPHEN TAB 500 MG TAB ONE (06:52)
[2022-09-16] MEDS ORDERED: MIDAZOLAM 2 MG/2 ML VIAL IVP ONE (06:56)
[2022-09-16] MEDS ORDERED: PROPOFOL 10 MG/ML 20 ML VIAL IV ONE (07:25)
[2022-09-16] MEDS ORDERED: TRANEXAMIC ACID IN NACL,ISO-OS 1,000 MG/100 ML BAG ONE (07:25)
[2022-09-16] MEDS ORDERED: NEOSTIGMINE 1 MG/ML 10 ML VIAL ONE (07:25)
[2022-09-16] MEDS ORDERED: fentaNYL (PF) 50 MCG/ML 2 ML AMP ONE (07:25)
[2022-09-16] MEDS ORDERED: LIDOCAINE 2% INJ 20 MG/ML (2 ML VIAL) ONE (07:25)
[2022-09-16] MEDS ORDERED: ROCURONIUM 10 MG/ML (5 ML VIAL) IV ONE (07:25)
[2022-09-16] MEDS ORDERED: DEXAMETHASONE SOD PHOSPHATE 4 MG/ML 1 ML VIAL ONE (07:25)
[2022-09-16] MEDS ORDERED: ROPIVACAINE 5 MG/ML 30 ML VIAL ONE (07:25)
[2022-09-16] MEDS ORDERED: ePHEDrine 50 MG/ML 1 ML VIAL ONE (07:25)
[2022-09-16] MEDS ORDERED: HYDROmorphone (PF) 1 MG/ML ONE (07:25)
[2022-09-16] MEDS ORDERED: SUCCINYLCHOLINE CHLORIDE 200 MG/10 ML VIAL IV ONE (07:25)
[2022-09-16] MEDS ORDERED: GLYCOPYRROLATE 0.2 MG/ML 2 ML VIAL ONE (07:25)
[2022-09-16] MEDS: ROPIVACAINE/EPI/CLONIDINE/KET 50 ML SYRINGE MISCELLANE PRN ×2 (08:09→08:37)
--- NOTE | 2022-09-16 08:41 | P.ANPRN ---
Procedure Note - Anesthesia - Nerve Block Performed Right Other (see comment) Single Time Out Performed: Yes (DREW block) Date of Procedure: 09/16/22 Procedure Start Time: 06:55 Procedure Stop Time: 06:59 Location of Patient: PreOp Indication: Acute Post-Operative Pain, Requested by Surgeon Sedation Type: Sedate with meaningful contact maintained Preparation: Sterile Prep, Sterile Dressing Position: Supine Catheter: None Needle Types: Facet Needle Gauge: 20 Ultrasound used to visualize needle placement: Yes Ultrasound used to observe medication spread: Yes Injectate: 0.5% Ropivacaine (see comment for volume) (30 ml + decadron 4 mg) Narrative: Right sided DREW block performed Blood Aspirated: No Pain Paresthesia on Injection Noted: No Resistance on Injection: Normal Image Stored and Saved: Yes Events: Uneventful and Well Tolerated
[2022-09-16] MEDS ORDERED: LACTATED RINGERS 1,000 ML IV ONE (08:47)
[2022-09-16] MEDS ORDERED: NALOXONE 0.4 MG/ML 1 ML VIAL IV PRN (09:39)
[2022-09-16] MEDS ORDERED: HYDROcodone/APAP 5-325MG 1 EACH TAB PO PRN (09:39)
[2022-09-16] MEDS ORDERED: hydrOXYzine pamoate 25 MG CAP PO PRN (09:39)
--- NOTE | 2022-09-16 09:43 | P.OP ---
Date of Procedure: 09/16/22 Preoperative Diagnosis: Severe right hip osteoarthritis Postoperative Diagnosis: Same Procedure(s) Performed: Right direct anterior total hip arthroplasty Implants: 1. Amity Trident II Acetabular Cup, Size #58 2. Akanksha Insignia Size #5 Femoral StemHigh Offset 3. Biolox delta femoral head, 36, -5 mm neck Anesthesia: GIO Surgeon: Juan Jose Colby Therapy Coordinator #1: Phyllis Rausch Estimated Blood Loss (ml): 100 IV fluids (ml): 1,000 Pathology: none sent (Routine gross and/or histopathologic evaluation by pathology is not indicated based on my preoperative evaluation of his imaging and intraoperative findings) Condition: stable Disposition: PACU Indications for Procedure: The patient is very pleasant 51-year-old male who previously underwent a left total hip replacement by me and did well. He developed progressively worsening pain in his right hip. His x-rays showed severe hip arthritis and his exam was consistent with osteoarthritis. Having previously undergone a left total hip replacement he requested proceeding with a right total hip replacement. I had a long discussion with the patient in the office on the potential risks and complications of an elective total hip replacement through a direct anterior approach. Risks discussed include, but are certainly not limited to, risks from anesthesia, superficial infection requiring local wound care or antibiotics, deep roxanne-prosthetic joint infection and the treatment required to eradicate infection, intraoperative fracture, postoperative periprosthetic fracture, damage to local blood vessels or nerves particularly the lateral femoral cutaneous nerve, delayed wound healing requiring local wound care or possibly surgical debridement, hip dislocation, leg length discrepancy, soft tissue irritation around the total hip implant such as iliopsoas tendinitis or trochanteric bursitis, wear and osteolysis from the implants, squeaking or audible noises, groin pain, thigh pain, heterotopic ossification, stiffness, aseptic loosening of the implants, dissatisfaction with surgical outcome, need for revision surgery, DVT, PE, swelling of the operative extremity, acute coronary event, stroke, failure to thrive, and possibly loss of life or limb. The patient understands that while these are the most common complications after an elective hip replacement there are certainly other less common complications possible. They were given ample time to ask questions regarding the potential complications of a hip replacement. Following our discussion the patient provided their verbal and written consent to go forward with an elective total hip replacement. Operative Findings: Severe right hip osteoarthritis with full-thickness cartilage loss in the femoral head and acetabulum. There was a large clear effusion. Description of Procedure: The patient was identified in the preoperative holding area and the correct hip was marked with my initials. I reviewed the procedure and consent with the patient. All of their questions were answered. The patient was then brought back into the operating room by anesthesia. While on the [facility] anesthesia was administered by the anesthesia team. Preoperative antibiotics and tranexamic acid were also given. After the patient was under anesthesia I examined their ankles to determine their preoperative leg length discrepancy. The skin over the anterior aspect of the hip was shaved to remove hair over the site of planned incision. Both feet and ankles were padded with webril and boots for the Austin were applied. The patient was then carefully transferred onto the Austin table. A perineal post was immediately placed. The arms were placed on arm holders and were well-padded. Both boots were secured to the spars on the Austin table. The patient was positioned so that the pelvis was centered over the post. Nonsterile drapes were applied. A timeout was performed identifying the correct patient, operative extremity, and procedure. At this point fluoroscopy was brought in to take preoperative images of the pelvis and operative hip. Using the standing AP pelvis from the office as a template, a comparable image was obtained with fluoroscopy. A metallic bar was used to create a bi-ischial line for use as a reference to leg length adjustments during the procedure. Global offset was also measured on both the operative and nonoperative leg. Fluoroscopy was then brought out and a pre-scrub using a chlorhexidine scrub brush was performed. The operative limb was then prepped and draped in the standard sterile fashion. An anterior longitudinal incision was made lateral and distal to the ASIS. The skin and subcutaneous tissues were incised sharply. The underlying tensor fascia was identified and incised in its midportion. The fascia was dissected free from the underlying muscle and the muscle belly was retracted. A blunt tipped cobra retractor was placed over the superior neck under the muscle fibers of the gluteus minimus. The deep enveloping fascia of the tensor was incised. The anterior leash of vessels were then identified and cauterized. The fascia between the rectus and the capsule was then incised and the pre-capsular fat was excised. A second Cobra was placed inferior to the neck. The interval between the rectus and iliocapsularis and the hip capsule was developed and a retractor was placed carefully over the anterior rim of the acetabulum. A T-shaped anterior capsulotomy was performed. The superior capsular leaflet was left in place in the inferior capsular flap was excised. The Cobra retractors were placed intracapsularly. We then made a femoral neck osteotomy according to preoperative and intraoperative templating and confirmed the level of the osteotomy using fluoroscopic imaging. The femoral head was removed, passed off to the back table, and sized. The superior capsular flap was excised. Retractors were placed circumferentially exposing the acetabulum. We then circumferentially debrided the acetabulum free of labrum and osteophytes. The pulvinar was removed to fully visualize the cotyloid fossa. We then sequentially reamed to achieve peripheral fit and excellent bleeding subchondral bone. The socket was thoroughly irrigated. The acetabular component was impacted into the appropriate position using fluoroscopy to guide version, inclination, and depth of insertion taking care to have a comparable image of the AP pelvis to the standing image taken in the office. An excellent press-fit was achieved and final position was confirmed using fluoroscopy. The press fit was augmented with bony cancellus dome screws. The liner was then impacted into the socket. Attention was then turned to the femur. The remnant dorsal lateral capsule was excised. The short external rotators were visible and protected. A bone hook was used to confirm appropriate translation of the trochanter away from the acetabulum. The leg was then extended and adducted and the bone hook was used to elevate the femur for broaching. A box osteotome and blunt tipped canal sound was then utilized to gain access to the femoral canal. We then sequentially broached the femur in appropriate anteversion until excellent torsional stability was achieved. The neck cut was brought flush to the trial broach with a calcar planar. A trial neck and head were then placed onto the broach and the hip was atraumatically reduced under direct visualization. External rotation to 90 was performed to assess stability. Fluoroscopy was brought in. An AP and lateral fluoroscopic image of the proximal femur was obtained to assess position and fill of the trial broach. An AP of the pelvis was then obtained and matched to the preoperative image taken. A bi-ischial bar was then placed and measurements were taken to assess changes in length and offset. The hip was then carefully dislocated, the proximal femur was exposed, and the trial implants were removed. The wound and proximal femur was thoroughly irrigated using sterile saline and pulsatile lavage. The final femoral implant was dispensed and gently tapped into place generating an excellent press-fit. The trunnion was cleansed and the final head was tapped into place to engage the Adhikari taper. The acetabulum was irrigated and visualized to be free of debris. The hip was carefully reduced. Stability was checked clinically with external rotation to 90 and there was no evidence of instability. Final fluoroscopic images were taken. The wound was then thoroughly irrigated and soaked with a dilute Betadine rinse for 3 minutes. 3 L of sterile saline was irrigated through the wound using pulsatile lavage. Local anesthetic cocktail was injected into the soft tissues around the surgical field. A deep drain was placed. The wound was then closed in layers. A sterile dressing was placed over the surgical incision and drain site. The drapes were taken down and the patient was carefully transferred off of the Austin table. Following removal of the boots the leg lengths felt acceptable. The patient was then taken to recovery room having tolerated the procedure well. Phyllis Rausch PA-C was required as a skilled campaign assistant for patient positioning, surgical exposure, retraction, placement of implants, and closure of the surgical wound. PLAN: The patient can weight-bear as tolerated on the operative extremity. 2 doses of postoperative antibiotics. DVT prophylaxis with aspirin 81 mg twice a day based on preoperative risk stratification. Physical therapy for gait training. Discontinue drain postoperative day #1 if output is less than 100 mL per shift.
--- NOTE | 2022-09-16 09:50 | XR ---
EXAMINATION TYPE: XR Hip Limited RT DATE OF EXAM: 09/16/2022 COMPARISON: NONE HISTORY: Postop TECHNIQUE: One view submitted. FINDINGS: There is postsurgical change in near anatomic alignment. There is soft tissue edema and emphysema. IMPRESSION: 1. Postoperative change. Appears in near-anatomic alignment.
--- NOTE | 2022-09-16 09:50 | FL ---
EXAMINATION TYPE: FL guidance operating room DATE OF EXAM: 09/16/2022 HISTORY: Fluoroscopy time 53 seconds of fluoroscopy provided. IMPRESSION: 1. Fluoroscopy time.
[2022-09-16] MEDS: HYDROmorphone 1 MG/ML 1 ML SYRINGE IVP PRN ×3 (10:57→17:51)
[2022-09-16] MEDS ORDERED: LORazepam 0.5 MG TAB PO PRN (11:05)
[2022-09-16] MEDS ORDERED: LORazepam 1 MG TAB PO PRN ×3 (11:05)
--- NOTE | 2022-09-16 11:08 | P.CONS ---
History of Present Illness - Reason for Consult Consult date: 09/16/22 HTN Requesting physician: Juan Jose Colby - Chief Complaint hip pain - History of Present Illness Patient is a 42-year-old male with hypertension, dyslipidemia, GERD, and tobacco dependency presented for elective right direct anterior total hip arthroplasty. He had a left direct anteriot total hip arthorplasty in December 2021. Patient seen and examined at bedside. He is having 4/10 pain. He denies any chest pain, SOB, lightheadness, or dizziness. He was in his normal state of health prior to admission and had his left hip done in December. He has no additional complaints currently. He reports that he started wellburtin to help stop smoking and he does not want nicotine replacement. He reports that he drinks 1-2 mixed drinks nightly to help him go to sleep. Was not requiring a cane or a walker at home prior to surgery. Pertinent positives and negatives as discussed in HPI, a complete review of systems was performed and all other systems are negative. Vital signs reviewed General: nontoxic, no distress, appears at stated age Derm: warm, dry Head: atraumatic, normocephalic, symmetric Eyes: EOMI, no lid lag, anicteric sclera, pupils equal round reactive to light ENT: Nose and ears atraumatic, no thrush, + pharyngeal erythema Neck: No thyromegaly, no cervical lymphadenopathy, trachea midline, supple Mouth: no lip lesion, mucus membranes moist Cardiovascular: S1S2 reg, no murmur, positive posterior tibial pulse bilateral, no edema Lungs: clear to auscultation bilateral, no rhonchi, no rales, no wheeze, no accessory muscle use Abdominal: soft, nontender to palpation, no guarding, no appreciable organomegaly, normal bowel sounds Ext: no gross muscle atrophy, muscle strength 5 out of 5 in upper extremities, no contractures Neuro: CN II-XII grossly intact, light touch intact all 4 extremities Psych: Alert, oriented, appropriate affect Assessment/Plan: Pt is a 51 yo Male here for right director anterior total hip arthroplasty HTN - resume lisinopril and norvasc - follow BP HLD - Statin Tobacco dependency - encourage his plan on stopping tobacco products - Welbutrin GERD - PPI Alcohol dependency -CIWA protocol -Thiamine -Folic acid Thank you for allowing us to participate in the care of this pleasant patient. Do not hesitate to contact us with questions. Someone can be reached from the [facility] hospitalist group all hours of the day at [phone] or via [employer]. Past Medical History Past Medical History: GERD/Reflux, Hyperlipidemia, Hypertension, Osteoarthritis (OA) History of Any Multi-Drug Resistant Organisms: None Reported Additional Past Surgical History / Comment(s): 12/24/21 LEFT ANT. HIP REPLACEMENT. Vasectomy Past Anesthesia/Blood Transfusion Reactions: No Reported Reaction Past Psychological History: No Psychological Hx Reported Smoking Status: Current every day smoker Past Alcohol Use History: Daily Additional Past Alcohol Use History / Comment(s): SMOKES ABOUT 12 CIGS PER DAY. STARTED SMOKING AT AGE 20 YR. USES BUPROPION TO ASSIST IN QUITING Past Drug Use History: None Reported - Past Family History Mother Family Medical History: No Reported History Medications and Allergies Home Medications Medication Instructions Recorded Confirmed Type Atorvastatin Calcium [Lipitor] 10 mg PO HS 12/22/21 09/16/22 History amLODIPine [Norvasc] 10 mg PO QAM 12/22/21 09/12/22 History buPROPion HCL [buPROPion HCL SR] 150 mg PO Q12HR 12/22/21 09/16/22 History lisinopriL [Zestril] 20 mg PO QAM 12/22/21 09/12/22 History traMADol HCL [Ultram] 50 mg PO Q6HR PRN 12/22/21 09/16/22 History Omeprazole 40 mg PO QAM 09/12/22 09/12/22 History Allergies Allergy/AdvReac Type Severity Reaction Status Date / Time varenicline [From Chantix] AdvReac upset Verified 09/16/22 06:17 stomach Physical Exam Osteopathic Statement: *. No significant issues noted on an osteopathic structural exam other than those noted in the History and Physical/Consult. Vitals: Vital Signs Temp Pulse Resp BP Pulse Ox 09/16/22 10:33 97.5 F L 93 16 118/82 93 L 09/16/22 10:04 86 16 124/79 92 L 09/16/22 09:49 90 16 116/76 93 L 09/16/22 09:34 97.6 F 97 14 120/78 98 09/16/22 07:17 72 16 136/92 97 09/16/22 06:30 97.5 F L 72 18 139/97 96 Intake and Output 09/15/22 09/16/22 09/16/22 22:59 06:59 14:59 Intake Total 400 1050 Output Total 100 Balance 400 950 Intake: IV 400 1050 Output: Estimated Blood Loss 100 Other: Weight 87.5 kg 87.5 kg
[2022-09-16] MEDS: LACTATED RINGERS 1,000 ML IV SCH ×2 (15:13→23:37)
[2022-09-16] MEDS ORDERED: ATORVASTATIN 10 MG TAB PO SCH (21:00)
[2022-09-16] MEDS: buPROPion SR 150 MG TABLET.ER PO SCH (21:24)
[2022-09-16] MEDS: HYDROcodone/APAP 5-325MG 1 EACH TAB PO PRN (21:24)
[2022-09-16] MEDS: ASPIRIN 81 MG PO SCH (21:24)
[2022-09-17] MEDS: HYDROcodone/APAP 5-325MG 1 EACH TAB PO PRN ×3 (03:41→15:43)
[2022-09-17] MEDS ORDERED: PANTOPRAZOLE 40 MG TABLET PO SCH (07:30)
[2022-09-17] MEDS: LACTATED RINGERS 1,000 ML IV SCH (07:50)
[2022-09-17] MEDS: ASPIRIN 81 MG PO SCH (08:50)
[2022-09-17] MEDS: buPROPion SR 150 MG TABLET.ER PO SCH (08:50)
[2022-09-17] MEDS ORDERED: THIAMINE 100 MG TAB PO SCH (09:00)
[2022-09-17] MEDS ORDERED: lisinopriL 20 MG TAB PO SCH (09:00)
[2022-09-17] MEDS ORDERED: amLODIPine 10 MG TAB PO SCH (09:00)
[2022-09-17] MEDS ORDERED: FOLIC ACID 1 MG TAB PO SCH (09:00)
[2022-09-17 09:04] VITALS: RESP 16
--- NOTE | 2022-09-17 11:37 | P.PN ---
Subjective Progress Note Date: 09/17/22 Patient is a 42-year-old male with hypertension, dyslipidemia, GERD, and tobacco dependency presented for elective right direct anterior total hip arthroplasty. He had a left direct anteriot total hip arthorplasty in December 2021. Patient seen and examined at bedside. Pain is well controlled. No complaints currently. Wants to go home today. General: nontoxic, no distress, appears at stated age Derm: warm, dry Head: atraumatic, normocephalic, symmetric Eyes: EOMI, no lid lag, anicteric sclera Mouth: no lip lesion, mucus membranes moist Cardiovascular: S1S2 reg, no murmur, positive posterior tibial pulse bilateral, Lungs: CTA bilateral, no rhonchi, no rales , no accessory muscle use Ext: no gross muscle atrophy, trace edema, no contractures Neuro: CN II-XI grossly intact, no focal neuro deficits Psych: Alert, oriented, appropriate affect Assessment/Plan: Pt is a 51 yo Male here for right director anterior total hip arthroplasty HTN - Continue lisinopril and norvasc - follow BP HLD - Statin Tobacco dependency - encourage his plan on stopping tobacco products - Welbutrin GERD - PPI Alcohol dependency -CIWA protocol -Thiamine -Folic acid Medically optimized for discharge pending CBC results with HgB > 12 Thank you for allowing us to participate in the care of this pleasant patient. Do not hesitate to contact us with questions. Someone can be reached from the [facility] hospitalist group all hours of the day at [phone] or via [employer]. Objective - Vital Signs Vital signs: Vital Signs Temp 98.4 F 09/17/22 08:00 Pulse 79 09/17/22 08:00 Resp 16 09/17/22 08:50 BP 128/82 09/17/22 08:00 Pulse Ox 96 09/17/22 08:00 FiO2 Intake & Output 09/16/22 09/17/22 09/17/22 18:59 06:59 18:59 Intake Total 1050 Output Total 170 180 Balance 880 -180 Weight 87.5 kg Intake: IV 1050 Output: Drainage 70 180 Right 70 180 Estimated Blood Loss 100 Other: Voiding Method Urinal Urinal # Voids 3
[2022-09-17 13:11] LABS: Basophils # (A) 0.02 X 10*3/uL (0.00-0.10); Basophils % (A) 0.1 %; Eosinophils # (A) 0.01 X 10*3/uL (0.04-0.35); Eosinophils % (A) 0.1 %; HGB 14.3 g/dL (13.0-17.0); Immature Grans, Automated 0.4 %; Lymphocytes # (A) 1.48 X 10*3/uL (0.90-5.00); Lymphocytes % (A) 8.7 %; MCH 32.8 pg (27.0-32.0); MCHC 33.3 g/dL (32.0-37.0); MCV 98.6 fL (80.0-97.0); Mean Platelet Volume 11.2 fL (9.5-12.2); Monocytes # (A) 1.13 X 10*3/uL (0.20-1.00); Monocytes % (A) 6.6 %; NRBC Per 100 WBC 0 /100 WBCS (0.0-0.0); Neutrophils # (A) 14.37 X 10*3/uL (1.80-7.70); Neutrophils % (A) 84.1 %; Platelet Count 237 X 10*3/uL (140-440); RBC 4.36 X 10*6/uL (4.40-5.60); RDW 13.4 % (11.5-14.5); WBC 17.07 X 10*3/uL (4.50-10.00)
--- NOTE | 2022-09-17 13:25 | P.DS ---
Providers Date of admission: 09/16/22 21:33 Expected date of discharge: 09/17/22 Attending physician: Juan Jose Colby Consults: 09/16/22 14:33 Consult Physician Routine Consulting Provider: Marcelina Bonilla Consult Reason/Comments: medical managment Do you want consulting provider notified?: Already Contacted Primary care physician: Nikolai Ding MD - Discharge Diagnosis(es) (1) Osteoarthritis of right hip Patient was admitted to the OR on 09/16/22 to undergo a right total hip arthroplasty. He had failed conservative measures as an outpatient and desired to proceed with elective surgery after given informed consent. He underwent the above procedure which he tolerated well without complication. Postoperative hospital course has remained without complication. On day of discharge he is afebrile, vital signs stable, labs within acceptable ranges, tolerating by mouth meds and diet, voiding without difficulty, positive flatus, denies abdominal pain or calf pain, pain is controlled on oral pain medication and has no new complaints. Wound is benign, neurovascular status is intact, calf is soft and nontender, abdomen soft and nontender. Review of systems is negative for numbness, tingling, fever, chills, chest pain, shortness of breath, nausea, vomiting, dizziness, headaches, slurred speech or other. Current Visit: Yes Status: Acute Priority: Medium Procedures: Right MANDI Patient Condition at Discharge: Good Plan - Discharge Summary Discharge Rx Participant: Yes New Discharge Prescriptions: New Aspirin 81 mg PO BID 30 Days #60 tab Docusate [Colace] 100 mg PO BID #60 capsule HYDROcodone/APAP 5-325MG [Dwarf 5-325] 1 - 2 tab PO Q6HR PRN 7 Days #32 tab PRN Reason: Pain Omeprazole 40 mg PO DAILY 30 Days #30 cap Diclofenac Sodium [Voltaren] 75 mg PO BID 30 Days #60 tab Continue amLODIPine [Norvasc] 10 mg PO QAM lisinopriL [Zestril] 20 mg PO QAM buPROPion HCL [buPROPion HCL SR] 150 mg PO Q12HR Atorvastatin Calcium [Lipitor] 10 mg PO HS No Action traMADol HCL [Ultram] 50 mg PO Q6HR PRN PRN Reason: Pain Omeprazole 40 mg PO QAM Discharge Medication List Atorvastatin Calcium [Lipitor] 10 mg PO HS 12/22/21 [History] amLODIPine [Norvasc] 10 mg PO QAM 12/22/21 [History] buPROPion HCL [buPROPion HCL SR] 150 mg PO Q12HR 12/22/21 [History] lisinopriL [Zestril] 20 mg PO QAM 12/22/21 [History] traMADol HCL [Ultram] 50 mg PO Q6HR PRN 12/22/21 [History] Omeprazole 40 mg PO QAM 09/12/22 [History] Aspirin 81 mg PO BID 30 Days #60 tab 09/16/22 [Rx] Diclofenac Sodium [Voltaren] 75 mg PO BID 30 Days #60 tab 09/16/22 [Rx] Docusate [Colace] 100 mg PO BID #60 capsule 09/16/22 [Rx] HYDROcodone/APAP 5-325MG [Dwarf 5-325] 1 - 2 tab PO Q6HR PRN 7 Days #32 tab 09/16/22 [Rx] Omeprazole 40 mg PO DAILY 30 Days #30 cap 09/16/22 [Rx] Follow up Appointment(s)/Referral(s): Juan Jose Colby MD [Medical Doctor] - 2 Weeks Activity/Diet/Wound Care/Special Instructions: Weight bear to tolerance on operative extremity with a walker. Keep operative dressing intact until follow-up appointment in the office. Call the office if dressing becomes saturated or falls off. May shower over dressing. Take pain medications as prescribed. Take aspirin 81mg BID x 4 weeks for blood clot prevention. Follow-up in the office in two weeks at [facility]. Call the office with any questions or concerns, Discharge Disposition: HOME WITH HOME HEALTH SERVICES
[2022-09-17 15:48] VITALS: BP 116/76; PULSE 82; TEMP 98.3
== END 2022-09-17 15:58 | disposition home health service (06) ==
LOC: OR 05:46 → 4SSUR 10:07 → OR 20:42 → 4SSUR 21:33
PROVIDERS: ADMIT Orthopaedic Surgery; ATTEND Orthopaedic Surgery
DX: M16.11 Unilateral primary osteoarthritis, right hip (principal); G89.18 Other acute postprocedural pain; E78.5 Hyperlipidemia, unspecified; K21.9 Gastro-esophageal reflux disease without esophagitis; I10 Essential (primary) hypertension; F10.20 Alcohol dependence, uncomplicated; F17.200 Nicotine dependence, unspecified, uncomplicated; Z79.899 Other long term (current) drug therapy
CPT/HCPCS: 97116; 97161; 64447; 76942; 86900; 86901; 85025; 86850; 88300; 73501; 27130; G0378 ×2; C1776; J2250; J0330; J1100 ×2; J2710; S0106 ×2; J0690 ×2; J2405; J3010; J1170; J2795; J1885; J2704; J2001